=== PATIENT | female | born 1995 | race Caucasian/White ===

== ENCOUNTER 2016-12-05 01:45 | Emergency (ER) | payer BC ==
[2016-12-05] MEDS: NS 0.9% 1000 ML* 1,000 ML IV ONE ×2 (03:00→03:29)
[2016-12-05 06:18] VITALS: BP 114/46
--- NOTE | 2016-12-05 06:55 | ED ---
Tu Earl Rebecca, scribed for Zayra Wilson MD on 12/05/16 at 0253 . Substance Abuse/Use - HPI Summary HPI Summary: Pt is a 21 y/o F BIBA who presents to ED with EtOH intoxication. Pt cannot give any information upon evaluation. Level 5 caveat due to EtOH intoxication. - History Of Current Complaint Chief Complaint: EDSubstanceAbuse Stated Complaint: ALCOHOL CONSUMPTION Time Seen by Provider: 12/05/16 01:50 Hx Obtained From: EMS Hx From Patient Unobtainable Due To: Other - EtOH intoxication Ingestion History: Type/Name Of Drug - EtOH Overdose Characteristics: Oral - Allergies/Home Medications Allergies/Adverse Reactions: Allergies Allergy/AdvReac Type Severity Reaction Status Date / Time Unable to Obtain Allergy Verified 12/05/16 01:54 PMH/Surg Hx/FS Hx/Imm Hx Previously Healthy: No - UNKNOWN- Level 5 caveat due to EtOH intoxication Infectious Disease History: No Infectious Disease History: Denies: Traveled Outside the [place] in Last 30 Days - Family History Known Family History: Positive: Unknown - Level 5 caveat due to EtOH intoxication - Social History Alcohol Use: Occasionally Substance Use Type: Reports: None Smoking Status (MU): Never Smoked Tobacco Review of Systems - ROS Summary Review of Systems Summary: Level 5 caveat due to EtOH intoxication. Negative: Fever Positive: Other - EtOH intoxication All Other Systems Reviewed And Are Negative: No Physical Exam - Summary Physical Exam Summary: Skin: Warm, dry, no mottling, no rashes, no contusions, a few small abrasions to her knees HEENT: EOMI, PERRL, moist mucous membranes Neck: No masses on the neck, supple Respiratory: Clear to auscultation, breath sounds present, no rales, no rhonchi , no wheezes Cardiovascular: RRR, pulses are symmetrical in both lower and upper extremities Abdomen: Soft, non-tender Bowel Sounds: Present Musculoskeletal: No CVA tenderness, no obvious deformity, moving all extremities in a grossly normal manner Triage Information Reviewed: Yes Vital Signs On Initial Exam: Initial Vitals Temp Pulse Resp BP Pulse Ox 97.6 F 73 16 117/59 99 12/05/16 01:48 12/05/16 01:48 12/05/16 01:48 12/05/16 01:48 12/05/16 01:48 Vital Signs Reviewed: Yes Completion Of Physical Exam Limited Due To: Level 5 - Lana Coma Scale Coma Scale Total: 13 Diagnostics - Vital Signs Vital Signs Temp Pulse Resp BP Pulse Ox 12/05/16 02:09 77 16 91/38 96 12/05/16 01:48 97.6 F 73 16 117/59 99 - Laboratory Lab Statement: Any lab studies that have been ordered have been reviewed, and results considered in the medical decision making process. Re-Evaluation - Re-Evaluation First Eval Re-Evaluation Time: 06:25 Change: Improved Comment: Able to walk and talk. Course/Dx - Course Assessment/Plan: Pt is a 21 y/o F BIBA who presents to ED with EtOH intoxication. Pt cannot give any information upon evaluation. Level 5 caveat due to EtOH intoxication. Serum alcohol of 241. In the ED course, pt received fluids. This patient presented after being intoxicated with alcohol and they were not assaulted. They present with no medical problems and were capable of walking and talking. Had the conversation about drinking responsibly and not to drink alcohol beverages that they didnt purchase. Pt will be D/C to home with Dx of acute alcohol intoxication. She is agreeable with this plan. - Diagnoses Provider Diagnoses: Acute alcohol intoxication Discharge - Discharge Plan Condition: Stable Disposition: HOME Referrals: [facility] - [facility] TRIVEDI [Primary Care Provider] - The documentation as recorded by the Tu hsieh Rebecca accurately reflects the service I personally performed and the decisions made by me, Zayra Wilson MD.
== END 2016-12-05 06:48 | disposition home or self-care (01) ==
LOC: ED 01:45
DX: F10.129 Alcohol abuse with intoxication, unspecified (principal)
CPT/HCPCS: 36415; 80320; 99282; G0480